=== PATIENT | male | born 1985 | race Caucasian/White ===

== ENCOUNTER 2017-03-04 16:57 | Emergency (ER) | payer OTHER ==
[~2017-03-04] VITALS: Wt 95.3 kg
[~2017-03-04 16:57] MED LIST: BUSPAR10 MG PO; EFFEXOR-XR75 MG PO; Fioricet 325 MG1 TAB PO; KEFLEX500 MG PO; KLONOPIN0.5 MG PO; MOTRIN800 MG PO; NOVAPLUS V0.09 MG/Ac IH; OMEPRAZOLE20 M2 PO; ROBAXIN500 M1 PO; ZITHROMAX Z PA250 MG PO; ZOLOFT100 MG PO
[2017-03-04] MEDS ORDERED: MINIPRESS2 M1 PO (17:17)
[2017-03-04] MEDS ORDERED: 'PARAFON FORTE500 M1 PO (17:26)
[2017-03-04] MEDS ORDERED: NAPROSYN500 MG PO (17:26)
== END 2017-03-04 18:00 | disposition home or self-care (01) ==
LOC: ED 16:57
DX: M54.42 Lumbago with sciatica, left side (principal); M54.41 Lumbago with sciatica, right side; R03.0 Elevated blood-pressure reading, without diagnosis of hypertension; F17.200 Nicotine dependence, unspecified, uncomplicated; Z79.899 Other long term (current) drug therapy

== ENCOUNTER 2017-09-13 17:53 | Emergency (ER) | payer OTHER ==
[~2017-09-13] VITALS: Ht 175.2 cm; Wt 90.7 kg
[~2017-09-13 17:53] MED LIST changes: +'PARAFON FORTE500 M1 PO; +MINIPRESS2 M1 PO; +NAPROSYN500 MG PO
[2017-09-13] MEDS ORDERED: AMOXICILLIN500 M2 PO (18:39)
[2017-09-13] MEDS ORDERED: ZYRTEC10 MG PO (18:39)
[2017-09-13] MEDS ORDERED: ROBITUSSIN DM 105 ML PO (18:39)
== END 2017-09-13 18:50 | disposition home or self-care (01) ==
LOC: ED 17:53
DX: J01.10 Acute frontal sinusitis, unspecified (principal); R05 Cough; F17.200 Nicotine dependence, unspecified, uncomplicated

== ENCOUNTER 2017-10-23 18:06 | Emergency (ER) | payer OTHER ==
[~2017-10-23 18:06] MED LIST changes: +AMOXICILLIN500 M2 PO; +ROBITUSSIN DM 105 ML PO; +ZYRTEC10 MG PO
[2017-10-23] MEDS ORDERED: ZOFRAN ODT4 MG SL (20:19)
== END 2017-10-23 20:21 | disposition home or self-care (01) ==
LOC: ED 18:06
DX: R51 Headache (principal); R11.0 Nausea; F41.9 Anxiety disorder, unspecified; F17.200 Nicotine dependence, unspecified, uncomplicated; F10.10 Alcohol abuse, uncomplicated; Z79.899 Other long term (current) drug therapy

== ENCOUNTER 2019-01-15 17:26 | Emergency (ER) | payer OTHER ==
[~2019-01-15] VITALS: Ht 182.8 cm; Wt 91.2 kg
--- NOTE | ~2019-01-15 | EKG ---
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
[~2019-01-15 17:26] MED LIST changes: +ZOFRAN ODT4 MG SL
[2019-01-15] MEDS ORDERED: SEPTDS PO (17:56)
[2019-01-15 18:12] LABS: BASO # 0.1 10*3/uL (0.0-0.1); BASO % 0.4 % (0.0-1.0); EOS # 0.1 10*3/uL (0.0-0.4); EOS % 0.9 % (1.0-4.0); HEMATOCRIT 39.1 % (42.0-52.0); HEMOGLOBIN 13.8 g/dl (14.0-18.0); LYMPH # 1.9 10*3/uL (1.3-4.4); LYMPH % 14.3 % (27.0-41.0); MEAN CELL VOLUME 86.5 fl (80.0-94.0); MEAN CORPUSCULAR HGB 30.5 pg (27.0-31.0); MEAN CORPUSCULAR HGB CONC 35.3 g/dl (33.0-37.0); MONO # 0.8 10*3/uL (0.1-1.0); NEUT # 10.4 10*3/uL (2.3-7.9); PLATELET COUNT AUTOMATED 203 10*3/uL (130-400); RED BLOOD COUNT 4.52 10*6/uL (4.50-5.90); RED CELL DISTRI WIDTH 11.6 % (0-14.5); WHITE BLOOD COUNT 13.4 10*3/uL (4.8-10.8)
[2019-01-15 18:39] LABS: ALBUMIN 3.4 gm/dl (3.1-4.5); ALKALINE PHOSPHATASE 96 U/L (45-117); BUN 12 mg/dl (7-24); CHLORIDE 102 mmol/L (98-107); CREATININE 1.13 mg/dL (0.70-1.30); POTASSIUM 3.4 mmol/L (3.5-5.1); SGOT/AST 19 IU/L (3-35); SGPT/ALT 37 U/L (12-78); SODIUM 136 mmol/L (136-145); TOTAL PROTEIN 7.6 gm/dL (6.4-8.2)
[2019-01-15 18:41] LABS: TROPONIN I < 0.015 ng/ml (<0.045)
== END 2019-01-15 20:43 | disposition short-term general hospital (02) ==
LOC: ED 17:26
PROVIDERS: Physician Assistant
DX: K61.1 Rectal abscess (principal); R79.1 Abnormal coagulation profile

== ENCOUNTER → 2020-10-11 | Outpatient (CLI) | payer OTHER ==
[~2020-10-11] MED LIST changes: +SEPTDS PO
== END | disposition home or self-care (01) ==
LOC: COVID19 13:59
PROVIDERS: ATTEND Internal Medicine
DX: Z20.828 Contact with and (suspected) exposure to other viral communicable diseases (principal)

== ENCOUNTER 2024-06-05 13:01 | Emergency (ER) | payer OTHER ==
[~2024-06-05] VITALS: Ht 182.8 cm; Wt 87.1 kg
[2024-06-05] MEDS ORDERED: Tdap Vaccine 0.5 ML SYR (Adult Vaccine) IM ONE (13:35)
[2024-06-05] MEDS ORDERED: Lidocaine Hydrochloride 2 ML AMP SC ONE (13:35)
== END 2024-06-05 13:43 | disposition home or self-care (01) ==
LOC: ED 13:01
DX: S61.211A Laceration without foreign body of left index finger without damage to nail, initial encounter (principal); F32.A Depression, unspecified; Z98.890 Other specified postprocedural states; W26.8XXA Contact with other sharp object(s), not elsewhere classified, initial encounter; Y93.89 Activity, other specified; Y92.009 Unspecified place in unspecified non-institutional (private) residence as the place of occurrence of the external cause; Y99.8 Other external cause status